=== PATIENT | female | born 1955 | race African-American/Black ===

== ENCOUNTER 2018-11-16 19:23 | Inpatient (IN) | payer OTHER ==
[~2018-11-16] VITALS: Ht 170.2 cm; Wt 89.8 kg
[~2018-11-16 19:23] MED LIST: FLUT50DI; HYDR-2510; IBUP100T7 PO; LORA5TAB8 PO
[2018-11-16] MEDS ORDERED: ASPIRIN 81MG TABLET PO ONE (21:30)
[2018-11-16] MEDS ORDERED: LABETALOL 5MG/ML SYR 20 MG/4 ML SYRINGE IV ONE (21:30)
[2018-11-16 21:46] LABS: BASOPHILS % 0.4 % (0.0-2.0); EOSINOPHILS % 1.4 % (0.0-5.0); HEMATOCRIT. 44.6 % (36.0-48.0); HEMOGLOBIN. 14.6 g/dL (12.0-16.0); LYMPHOCYTES % 23.2 % (20.0-50.0); MEAN CORPUSCULAR HEMOGLOBIN 27.5 pg (28.0-32.0); MEAN CORPUSCULAR VOLUME 84.1 fL (81.0-99.0); MEAN PLATELET VOLUME 9.1 fl (7.4-10.4); MONOCYTES % 6.1 % (2.0-8.0); NEUTROPHILS % 68.9 % (40.0-76.0); PLATELET 204 x1000/uL (130-400); RED CELL DISTRIBUTION WIDTH 13.5 % (11.6-14.6)
[2018-11-16 21:50] LABS: CHLORIDE 108 mEq/L (98-107)
[2018-11-17] VITALS (8 sets, daily range): BP systolic 140–174; BP diastolic 57–76
[2018-11-17] MEDS ORDERED: DORZ10DR9 EACHEYE (01:28)
[2018-11-17] MEDS ORDERED: TIMO5DRO32 EACHEYE (01:28)
[2018-11-17] MEDS ORDERED: CYCL10TA7 PO (01:28)
[2018-11-17] MEDS ORDERED: LOSA25TA12 PO (01:28)
[2018-11-17] MEDS ORDERED: LATA7.5D OP (01:28)
[2018-11-17] MEDS ORDERED: HYDRALAZINE 20MG/ML VIAL IV PRN (02:15)
[2018-11-17] MEDS ORDERED: ACETAMINOPHEN 325MG TABLET PO PRN (02:15)
[2018-11-17] MEDS ORDERED: PANTOPRAZOLE 40MG DR TABLET PO SCH (07:40)
[2018-11-17 07:41] LABS: CREATINE KINASE 142 IU/L (26-192)
[2018-11-17] MEDS ORDERED: AMLODIPINE 5MG TABLET PO SCH (09:00)
[2018-11-17] MEDS ORDERED: ASPIRIN 81MG TABLET PO SCH (09:00)
[2018-11-17] MEDS ORDERED: LOSARTAN POTASSIUM 50 MG TABLET PO SCH (12:30)
[2018-11-17 16:08] LABS: PROTHROMBIN TIME 10.2 sec (9.6-11.0)
[2018-11-17 16:10] LABS: CHLORIDE 108 mEq/L (98-107)
[2018-11-17 16:15] LABS: HEMATOCRIT 48.5 % (36.0-48.0); HEMOGLOBIN 15.4 g/dL (12.0-16.0); MEAN CORPUSCULAR HEMOGLOBIN 27.1 pg (28.0-32.0); MEAN CORPUSCULAR VOLUME 85.1 fL (81.0-99.0); PLATELET 209 x1000/uL (130-400); RED CELL DISTRIBUTION WIDTH 13.5 % (11.6-14.6)
[2018-11-17 16:23] LABS: CREATINE KINASE 146 IU/L (26-192)
[2018-11-17 19:31] LABS: CLARITY URINE CLEAR (CLEAR); COLOR URINE YELLOW (YELLOW); KETONES URINE NEGATIVE (NEGATIVE); LEUKOCYTE ESTERASE URINE 1+ (NEGATIVE); NITRITE URINE NEGATIVE (NEGATIVE); OCCULT BLOOD URINE NEGATIVE (NEGATIVE); PH URINE 8.5 (4.5-8.0); PROTEIN URINE NEGATIVE (NEGATIVE); SPECIFIC GRAVITY URINE 1.006 (1.005-1.030); UROBILINOGEN URINE 0.2 E.U./dL (0.2-1.0)
[2018-11-17 19:45] LABS: *AMPHETAMINES SCREEN URINE NEGATIVE (NEGATIVE); *BARBITURATES SCREEN URINE NEGATIVE (NEGATIVE); *BENZODIAZEPINES SCREEN URINE NEGATIVE (NEGATIVE); *COCAINE SCREEN URINE NEGATIVE (NEGATIVE)
[2018-11-17 19:46] LABS: CANNABINOID URINE SCREEN NEGATIVE (NEGATIVE); METHADONE URINE SCREEN NEGATIVE (NEGATIVE); OPIATES URINE SCREEN NEGATIVE (NEGATIVE); PHENCYCLIDINE URINE SCREEN NEGATIVE (NEGATIVE)
== END 2018-11-17 17:43 | disposition home or self-care (01) | DRG 305 ==
LOC: ER 19:23 → 7WST 22:32 → EDBEDREQ 22:59 → ENRESERV 23:32
PROVIDERS: ADMIT Ophthalmology; ATTEND Ophthalmology
DX: I16.0 Hypertensive urgency (principal); F41.9 Anxiety disorder, unspecified; I10 Essential (primary) hypertension; H40.9 Unspecified glaucoma; E66.9 Obesity, unspecified; E11.9 Type 2 diabetes mellitus without complications; Z88.5 Allergy status to narcotic agent; Z72.89 Other problems related to lifestyle; Z68.31 Body mass index [BMI] 31.0-31.9, adult; Z90.710 Acquired absence of both cervix and uterus; Z79.84 Long term (current) use of oral hypoglycemic drugs; Z87.891 Personal history of nicotine dependence
CPT/HCPCS: 36415; 71045; 80048; 80305; 82550; 82553; 83036; 83880; 84484; 85027; 93005; 93306; 99285; J0360; J3490

== ENCOUNTER 2019-05-04 02:21 | Emergency (ER) | payer MEDICARE, OTHER ==
[~2019-05-04] VITALS: Ht 170.2 cm; Wt 89.0 kg
[~2019-05-04 02:21] MED LIST changes: +CYCL10TA7 PO; -HYDR-2510; +LATA7.5D OP; +TIMO5DRO32 EACHEYE
[2019-05-04 03:39] LABS: BASOPHILS % 0.5 % (0.0-2.0); EOSINOPHILS % 1.8 % (0.0-5.0); HEMATOCRIT. 38.7 % (36.0-48.0); HEMOGLOBIN. 12.9 g/dL (12.0-16.0); LYMPHOCYTES % 23.2 % (20.0-50.0); MEAN CORPUSCULAR VOLUME 83.9 fL (81.0-99.0); MEAN PLATELET VOLUME 9.3 fl (7.4-10.4); MONOCYTES % 6.9 % (2.0-8.0); NEUTROPHILS % 67.6 % (40.0-76.0); PLATELET 183 x1000/uL (130-400); RED BLOOD CELL COUNT 4.62 mill/uL (4.2-5.4); RED CELL DISTRIBUTION WIDTH 13.6 % (11.6-14.6)
[2019-05-04 03:47] LABS: CHLORIDE 106 mEq/L (98-107)
[2019-05-04 04:39] LABS: CLARITY URINE CLEAR (CLEAR); COLOR URINE YELLOW (YELLOW); KETONES URINE NEGATIVE (NEGATIVE); LEUKOCYTE ESTERASE URINE 2+ (NEGATIVE); NITRITE URINE NEGATIVE (NEGATIVE); OCCULT BLOOD URINE NEGATIVE (NEGATIVE); PROTEIN URINE NEGATIVE (NEGATIVE); SPECIFIC GRAVITY URINE 1.005 (1.005-1.030); UROBILINOGEN URINE 0.2 E.U./dL (0.2-1.0)
[2019-05-04] MEDS ORDERED: CEPHALEXIN 250MG CAPSULE PO SCH (05:15)
[2019-05-04 07:00] VITALS: BP 141/68
== END 2019-05-04 07:17 | disposition home or self-care (01) ==
LOC: ER 02:21
DX: R53.1 Weakness (principal); N39.0 Urinary tract infection, site not specified; I10 Essential (primary) hypertension; Z87.891 Personal history of nicotine dependence; Z90.710 Acquired absence of both cervix and uterus; Z79.899 Other long term (current) drug therapy; Z88.5 Allergy status to narcotic agent
CPT/HCPCS: 36415; 71045; 81003; 84484; 87804; 93005; 99284

== ENCOUNTER 2019-07-04 08:53 | Emergency (ER) | payer OTHER ==
[~2019-07-04] VITALS: Ht 170.2 cm; Wt 90.0 kg
[2019-07-04] MEDS ORDERED: DIAZEPAM 5 MG/ML 2ML CPJ IM ONE (10:15)
[2019-07-04] MEDS ORDERED: OXYCODONE HCL/ACETAMINOPHEN 5/325MG TABLET PO ONE (10:15)
[2019-07-04] MEDS ORDERED: HYDRALAZINE 20MG/ML VIAL IV ONE (10:30)
[2019-07-04] MEDS ORDERED: ASPIRIN 81MG TABLET PO ONE (10:30)
[2019-07-04 10:38] VITALS: BP 138/81
== END 2019-07-04 11:07 | disposition home or self-care (01) ==
LOC: ER 08:53
DX: G89.29 Other chronic pain (principal); M54.2 Cervicalgia; I10 Essential (primary) hypertension; Z88.5 Allergy status to narcotic agent; Z79.899 Other long term (current) drug therapy; Z90.710 Acquired absence of both cervix and uterus; Z98.51 Tubal ligation status; Z87.891 Personal history of nicotine dependence
CPT/HCPCS: 96372; 99283

== ENCOUNTER 2019-07-04 12:44 | Inpatient (IN) | payer OTHER ==
[~2019-07-04] VITALS: Ht 170.2 cm; Wt 88.0 kg
[2019-07-04] MEDS ORDERED: KETOROLAC 30MG/ML VIAL IV STA (13:15)
[2019-07-04] MEDS ORDERED: SODIUM CHLORIDE 0.9% 1,000 ML IV ONE (13:15)
[2019-07-04 13:45] LABS: BASOPHILS % 0.3 % (0.0-2.0); EOSINOPHILS % 1.2 % (0.0-5.0); HEMATOCRIT. 43.3 % (36.0-48.0); HEMOGLOBIN. 14.4 g/dL (12.0-16.0); LYMPHOCYTES % 16.7 % (20.0-50.0); MEAN CORPUSCULAR HEMOGLOBIN 27.2 pg (28.0-32.0); MEAN CORPUSCULAR VOLUME 81.8 fL (81.0-99.0); MEAN PLATELET VOLUME 8.9 fl (7.4-10.4); MONOCYTES % 6.7 % (2.0-8.0); NEUTROPHILS % 75.1 % (40.0-76.0); PLATELET 220 x1000/uL (130-400); RED CELL DISTRIBUTION WIDTH 13.3 % (11.6-14.6)
[2019-07-04 13:55] LABS: CHLORIDE 95 mEq/L (98-107)
[2019-07-04] MEDS ORDERED: ASPIRIN 81MG TABLET PO ONE (16:15)
[2019-07-04] MEDS ORDERED: SODIUM CHLORIDE 0.9% 1,000 ML IV SCH (17:30)
[2019-07-04 21:40] VITALS: BP 167/90
[2019-07-04] MEDS ORDERED: ACETAMINOPHEN 325MG TABLET PO PRN (22:30)
[2019-07-04 22:33] VITALS: BP 167/90
[2019-07-04] MEDS ORDERED: CLONIDINE 0.1MG TABLET PO PRN (23:45)
[2019-07-05] MEDS ORDERED: PANTOPRAZOLE 40MG DR TABLET PO SCH (07:10)
[2019-07-05] MEDS ORDERED: ASPIRIN 81MG TABLET PO SCH (09:00)
[2019-07-05] MEDS ORDERED: LOSARTAN POTASSIUM 50 MG TABLET PO SCH (09:00)
== END 2019-07-05 01:40 | disposition short-term general hospital (02) | DRG 74 ==
LOC: ER 12:44 → 8WST 16:13 → SUPCPDRO 17:21 → ENRESERV 20:00
PROVIDERS: ADMIT Internal Medicine; ATTEND Internal Medicine
DX: G90.8 Other disorders of autonomic nervous system (principal); E87.1 Hypo-osmolality and hyponatremia; E86.0 Dehydration; I11.9 Hypertensive heart disease without heart failure; H40.9 Unspecified glaucoma; M47.9 Spondylosis, unspecified; S16.1XXA Strain of muscle, fascia and tendon at neck level, initial encounter; X58.XXXA Exposure to other specified factors, initial encounter; T39.8X5A Adverse effect of other nonopioid analgesics and antipyretics, not elsewhere classified, initial encounter; T42.4X5A Adverse effect of benzodiazepines, initial encounter; M48.02 Spinal stenosis, cervical region; Z86.73 Personal history of transient ischemic attack (TIA), and cerebral infarction without residual deficits; Z90.710 Acquired absence of both cervix and uterus; Z88.8 Allergy status to other drugs, medicaments and biological substances; Z79.899 Other long term (current) drug therapy; Z98.51 Tubal ligation status; Y93.89 Activity, other specified; Y92.89 Other specified places as the place of occurrence of the external cause; Y99.8 Other external cause status
CPT/HCPCS: 36415; 71045; 83880; 84484; 93005; 96374; 99285; J1885; J7030

== ENCOUNTER 2020-09-03 12:21 | Emergency (ER) | payer OTHER ==
[~2020-09-03] VITALS: Ht 170.2 cm; Wt 96.0 kg
[2020-09-03] MEDS ORDERED: KETOROLAC 30MG/ML VIAL IM ONE (13:15)
[2020-09-03 14:23] VITALS: BP 154/72
== END 2020-09-03 15:10 | disposition home or self-care (01) ==
LOC: ER 12:33
DX: M54.2 Cervicalgia (principal); I10 Essential (primary) hypertension
CPT/HCPCS: 96372; 99283; J1885

== ENCOUNTER 2020-09-11 20:45 | Emergency (ER) | payer OTHER ==
[~2020-09-11] VITALS: Ht 170.2 cm; Wt 96.0 kg
[2020-09-12 00:02] LABS: BASOPHILS % 0.6 % (0.0-2.0); EOSINOPHILS % 0.9 % (0.0-5.0); HEMATOCRIT. 46.6 % (36.0-48.0); LYMPHOCYTES % 13.5 % (20.0-50.0); MEAN CORPUSCULAR HEMOGLOBIN 26.9 pg (28.0-32.0); MEAN CORPUSCULAR VOLUME 83.8 fL (81.0-99.0); MEAN PLATELET VOLUME 9.5 fl (7.4-10.4); MONOCYTES % 5.4 % (2.0-8.0); NEUTROPHILS % 79.6 % (40.0-76.0); PLATELET 206 x1000/uL (130-400); RED BLOOD CELL COUNT 5.56 mill/uL (4.2-5.4)
[2020-09-12 00:07] LABS: CHLORIDE 108 mEq/L (98-107)
[2020-09-12] MEDS ORDERED: ACETAMINOPHEN 325MG TABLET PO STA (00:09)
[2020-09-12 00:47] LABS: CLARITY URINE CLEAR (CLEAR); COLOR URINE YELLOW (YELLOW); KETONES URINE NEGATIVE (NEGATIVE); LEUKOCYTE ESTERASE URINE 3+ (NEGATIVE); NITRITE URINE NEGATIVE (NEGATIVE); OCCULT BLOOD URINE NEGATIVE (NEGATIVE); PH URINE 5.5 (4.5-8.0); PROTEIN URINE NEGATIVE (NEGATIVE); SPECIFIC GRAVITY URINE 1.011 (1.005-1.030); UROBILINOGEN URINE 0.2 E.U./dL (0.2-1.0)
[2020-09-12 01:08] VITALS: BP 148/72
== END 2020-09-12 01:09 | disposition home or self-care (01) ==
LOC: ER 20:45
DX: R42 Dizziness and giddiness (principal); N39.0 Urinary tract infection, site not specified; I10 Essential (primary) hypertension; Z98.51 Tubal ligation status; Z98.890 Other specified postprocedural states; H40.9 Unspecified glaucoma; Z79.899 Other long term (current) drug therapy
CPT/HCPCS: 36415; 80053; 81003; 85025; 99283

== ENCOUNTER 2020-11-06 09:15 | Emergency (ER) | payer OTHER ==
[~2020-11-06] VITALS: Ht 170.2 cm; Wt 95.0 kg
[2020-11-06] MEDS ORDERED: SODIUM CHLORIDE 0.9% 1,000 ML IV ONE (10:00)
[2020-11-06 10:10] LABS: BASOPHILS % 0.5 % (0.0-2.0); EOSINOPHILS % 1.4 % (0.0-5.0); HEMATOCRIT. 45.8 % (36.0-48.0); HEMOGLOBIN. 14.6 g/dL (12.0-16.0); LYMPHOCYTES % 14.9 % (20.0-50.0); MEAN CORPUSCULAR HEMOGLOBIN 26.7 pg (28.0-32.0); MEAN CORPUSCULAR VOLUME 84.1 fL (81.0-99.0); MEAN PLATELET VOLUME 9.9 fl (7.4-10.4); MONOCYTES % 7.1 % (2.0-8.0); NEUTROPHILS % 76.1 % (40.0-76.0); PLATELET 215 x1000/uL (130-400); RED BLOOD CELL COUNT 5.45 mill/uL (4.2-5.4); RED CELL DISTRIBUTION WIDTH 14.3 % (11.6-14.6)
[2020-11-06 10:14] LABS: CHLORIDE 108 mEq/L (98-107)
[2020-11-06 11:20] LABS: CLARITY URINE CLEAR (CLEAR); COLOR URINE YELLOW (YELLOW); KETONES URINE NEGATIVE (NEGATIVE); LEUKOCYTE ESTERASE URINE NEGATIVE (NEGATIVE); NITRITE URINE NEGATIVE (NEGATIVE); OCCULT BLOOD URINE NEGATIVE (NEGATIVE); PH URINE 6.5 (4.5-8.0); PROTEIN URINE NEGATIVE (NEGATIVE); SPECIFIC GRAVITY URINE 1.014 (1.005-1.030); UROBILINOGEN URINE 0.2 E.U./dL (0.2-1.0)
[2020-11-06 11:43] VITALS: BP 169/61
== END 2020-11-06 11:44 | disposition home or self-care (01) ==
LOC: ER 09:15
DX: R55 Syncope and collapse (principal); I10 Essential (primary) hypertension; Z88.5 Allergy status to narcotic agent; Z79.899 Other long term (current) drug therapy; Z98.51 Tubal ligation status; Z98.890 Other specified postprocedural states
CPT/HCPCS: 36415; 71045; 80053; 81003; 82962; 85025; 93005; 96360; 99285; J7030

== ENCOUNTER 2021-02-25 07:59 | Emergency (ER) | payer OTHER ==
[~2021-02-25] VITALS: Ht 167.6 cm; Wt 90.0 kg
[2021-02-25] MEDS ORDERED: CYCLOBENZAPRINE 10MG TABLET PO ONE (08:45)
[2021-02-25] MEDS ORDERED: KETOROLAC 60MG/2ML VIAL IM ONE (08:45)
[2021-02-25 09:12] VITALS: BP 158/75
[2021-02-25] MEDS ORDERED: IBUP-2029 MT (10:22)
[2021-02-25] MEDS ORDERED: CYCL10TA7 MT (10:24)
== END 2021-02-25 11:12 | disposition home or self-care (01) ==
LOC: ER 07:59
DX: M62.830 Muscle spasm of back (principal)
CPT/HCPCS: 96372; 99283; J1885

== ENCOUNTER 2021-03-01 01:07 | Emergency (ER) | payer OTHER ==
[~2021-03-01] VITALS: Ht 170.2 cm; Wt 97.0 kg
[~2021-03-01 01:07] MED LIST changes: +CYCL10TA7 MT; +IBUP-2029 MT
[2021-03-01 01:18] VITALS: BP 164/72
[2021-03-01] MEDS ORDERED: NAP5EC MT (04:24)
== END 2021-03-01 04:30 | disposition home or self-care (01) ==
LOC: ER 01:07
DX: M54.2 Cervicalgia (principal); G89.29 Other chronic pain; M62.838 Other muscle spasm; I10 Essential (primary) hypertension; H40.9 Unspecified glaucoma; Z90.710 Acquired absence of both cervix and uterus; Z98.51 Tubal ligation status; Z79.899 Other long term (current) drug therapy
CPT/HCPCS: 99282

== ENCOUNTER 2021-07-30 19:03 | Emergency (ER) | payer OTHER ==
[~2021-07-30] VITALS: Ht 170.2 cm; Wt 97.0 kg
[~2021-07-30 19:03] MED LIST changes: +NAP5EC MT
[2021-07-30 20:01] VITALS: BP 160/76
[2021-07-30] MEDS ORDERED: LIDOCAINE HCL 1% 20ML VIAL (Pyxis) INJ INFIL ONE (21:15)
== END 2021-07-30 23:05 | disposition home or self-care (01) ==
LOC: ER 19:03
DX: T16.1XXA Foreign body in right ear, initial encounter (principal); H92.01 Otalgia, right ear; X58.XXXA Exposure to other specified factors, initial encounter; Y93.89 Activity, other specified; Y92.89 Other specified places as the place of occurrence of the external cause; Y99.8 Other external cause status; I10 Essential (primary) hypertension; Z98.51 Tubal ligation status; Z90.710 Acquired absence of both cervix and uterus; Z79.899 Other long term (current) drug therapy; Z20.822 Contact with and (suspected) exposure to COVID-19
CPT/HCPCS: 99283; C9803; J3490; U0003; U0005

== ENCOUNTER 2022-01-07 18:59 | Emergency (ER) | payer OTHER ==
[~2022-01-07] VITALS: Ht 170.2 cm; Wt 95.0 kg
[~2022-01-07 18:59] MED LIST changes: +CYCL10TA21 MT; +CYCL10TA21 PO; -CYCL10TA7 MT; -CYCL10TA7 PO
[2022-01-07 21:56] LABS: BASOPHILS % 0.4 % (0.0-2.0); EOSINOPHILS % 1.5 % (0.0-5.0); HEMATOCRIT. 41.6 % (36.0-48.0); HEMOGLOBIN. 13.6 g/dL (12.0-16.0); LYMPHOCYTES % 19.5 % (20.0-50.0); MEAN CORPUSCULAR VOLUME 82.7 fL (81.0-99.0); MEAN PLATELET VOLUME 9.1 fl (7.4-10.4); MONOCYTES % 6.2 % (2.0-8.0); NEUTROPHILS % 72.4 % (40.0-76.0); PLATELET 214 x1000/uL (130-400); RED BLOOD CELL COUNT 5.03 mill/uL (4.2-5.4); RED CELL DISTRIBUTION WIDTH 13.4 % (11.6-14.6)
[2022-01-07 22:00] LABS: CHLORIDE 104 mEq/L (98-107)
[2022-01-08 00:35] LABS: CLARITY URINE CLEAR (CLEAR); COLOR URINE YELLOW (YELLOW); KETONES URINE NEGATIVE (NEGATIVE); LEUKOCYTE ESTERASE URINE 2+ (NEGATIVE); NITRITE URINE NEGATIVE (NEGATIVE); OCCULT BLOOD URINE NEGATIVE (NEGATIVE); PH URINE 6.5 (4.5-8.0); PROTEIN URINE NEGATIVE (NEGATIVE); UROBILINOGEN URINE 0.2 E.U./dL (0.2-1.0)
[2022-01-08] MEDS ORDERED: HYDROCODONE/ACETAMINOPHEN 5/325MG TABLET PO ONE (00:45)
[2022-01-08] MEDS ORDERED: CIPR500T5 MT (02:28)
[2022-01-08 03:49] VITALS: BP 118/78
== END 2022-01-08 03:49 | disposition home or self-care (01) ==
LOC: ER 18:59
DX: N39.0 Urinary tract infection, site not specified (principal); N12 Tubulo-interstitial nephritis, not specified as acute or chronic; I10 Essential (primary) hypertension; Z90.710 Acquired absence of both cervix and uterus; Z98.51 Tubal ligation status; Z79.899 Other long term (current) drug therapy
CPT/HCPCS: 36415; 80053; 81003; 85025; 99283

== ENCOUNTER 2022-12-21 09:16 | Emergency (ER) | payer MEDICARE, OTHER ==
[~2022-12-21] VITALS: Ht 170.2 cm; Wt 95.2 kg
[~2022-12-21 09:16] MED LIST changes: +CIPR500T5 MT
[2022-12-21] MEDS ORDERED: HYDR-4001 MT (10:17)
[2022-12-21] MEDS ORDERED: DICL50TA9 MT (10:17)
[2022-12-21 10:45] VITALS: BP 125/78
== END 2022-12-21 10:46 | disposition home or self-care (01) ==
LOC: ER 09:31
DX: G89.29 Other chronic pain (principal); M54.6 Pain in thoracic spine; Z88.5 Allergy status to narcotic agent; Z79.899 Other long term (current) drug therapy
CPT/HCPCS: 99281

== ENCOUNTER 2023-04-12 02:16 | Emergency (ER) | payer MEDICARE ==
[~2023-04-12] VITALS: Ht 170.2 cm; Wt 76.3 kg
[~2023-04-12 02:16] MED LIST changes: +DICL50TA9 MT; +HYDR-4001 MT
[2023-04-12 02:26] VITALS: O2SAT 99
[2023-04-12] MEDS ORDERED: LIDOCAINE 5% PATCH TOP STA (03:56)
[2023-04-12] MEDS ORDERED: ACETAMINOPHEN 325MG TABLET PO ONE (04:00)
[2023-04-12] MEDS ORDERED: METHOCARBAMOL 750MG TABLET PO SCH (04:00)
[2023-04-12] MEDS ORDERED: KETOROLAC 60MG/2ML VIAL IM ONE (04:00)
[2023-04-12 04:19] VITALS: BP 154/73
[2023-04-12] MEDS: METHOCARBAMOL 500MG TABLET PO SCH ×2 (04:19→04:21)
[2023-04-12] MEDS ORDERED: LIDO1ADH23 TP (05:47)
[2023-04-12 06:05] VITALS: PULSE 55; RESP 20; TEMP 98.7
[2023-04-13] MEDS ORDERED: CYCL10TA21 MT (17:27)
== END 2023-04-12 06:07 | disposition home or self-care (01) ==
LOC: ER 02:16
DX: M54.12 Radiculopathy, cervical region (principal); I10 Essential (primary) hypertension; Z88.8 Allergy status to other drugs, medicaments and biological substances; Z79.899 Other long term (current) drug therapy; Z98.51 Tubal ligation status; Z98.890 Other specified postprocedural states
CPT/HCPCS: 99283; 96372; J1885

== ENCOUNTER 2023-04-13 14:37 | Emergency (ER) | payer MEDICARE ==
[~2023-04-13] VITALS: Ht 170.2 cm; Wt 95.0 kg
[~2023-04-13 14:37] MED LIST changes: +LIDO1ADH23 TP
[2023-04-13 14:59] VITALS: TEMP 98.9; O2SAT 96
[2023-04-13] MEDS ORDERED: CYCL10TA21 MT (17:27)
[2023-04-13 17:30] VITALS: BP 173/79; PULSE 55; RESP 18
[2023-04-13] MEDS ORDERED: KETOROLAC 60MG/2ML VIAL IM ONE (17:30)
== END 2023-04-13 18:04 | disposition home or self-care (01) ==
LOC: ER 14:37
DX: M54.2 Cervicalgia (principal); I10 Essential (primary) hypertension; Z79.899 Other long term (current) drug therapy
CPT/HCPCS: 96372; 99283